=== PATIENT | female | born 1955 | race Caucasian/White ===

== ENCOUNTER 2020-07-15 09:10 | Inpatient (IN) ==
[2020-07-15] MEDS ORDERED: Ciprofloxacin 400mg IVPREMIX 400 MG/200 ML BAG IVPB ONE (09:28)
[2020-07-15 10:10] LABS: ABS Basophils 0.1 10^3/ul (0-0.2); ABS Lymphocytes 0.4 10^3/ul (1.0-4.8); ABS Monocytes 0.3 10^3/ul (0-0.8); ABS Neutrophils 9.7 10^3/ul (1.5-7.7); Eosinophil % 0.3 %; Hematocrit 30 % (35-47); Hemoglobin 9.2 g/dL (12.0-16.0); Lymphocyte % 3.7 %; Mean Corpuscular HGB Conc 31 g/dL (31-36); Mean Corpuscular Hemoglobin 23 pg (27-31); Mean Corpuscular Volume 74 fL (80-97); Mean Platelet Volume 6.6 fL (7.4-10.4); Platelet Count 506 10^3/uL (150-450); Red Blood Count 3.97 10^6 /uL (3.70-4.87); Red Cell Distribution Width 27 % (10-15); White Blood Count 10.5 10^3/uL (3.5-10.8)
[2020-07-15 10:28] LABS: ALT 6 U/L (7-52); AST 11 U/L (13-39); Albumin 2.7 g/dL (3.2-5.2); Albumin/Globulin Ratio 0.6 (1-3); Alkaline Phosphatase 84 U/L (34-104); Anion Gap 6 mmol/L (2-11); BUN/Creatinine Ratio 27.4 (8-20); Blood Urea Nitrogen 29 mg/dL (6-24); C Reactive Protein 131.84 mg/L (<8.01); CO2 Carbon Dioxide 24 mmol/L (22-32); Chloride 105 mmol/L (101-111); EGFR African American 62.6 (>60); EGFR Non-African American 51.7 (>60); Globulin 4.7 g/dL (2-4); Glucose 103 mg/dL (70-100); Lipase < 10 U/L (11.0-82.0); Magnesium 1.9 mg/dL (1.9-2.7); Potassium 4.2 mmol/L (3.5-5.0); Sodium 135 mmol/L (135-145); Total Protein 7.4 g/dL (6.4-8.9)
[2020-07-15 11:13] LABS: Microcytosis 1+
[2020-07-15 11:50] LABS: Urine Appearance Cloudy; Urine Bilirubin Negative (Negative); Urine Blood 2+ (Negative); Urine Color Yellow; Urine Glucose Negative (Negative); Urine Ketones Negative (Negative); Urine Nitrite Negative (Negative); Urine Protein 1+(30 mg/dL) (Negative); Urine Specific Gravity 1.035 (1.010-1.030); Urine Urobilinogen Negative (Negative)
[2020-07-15 11:57] LABS: Urine Bacteria 1+ (Absent); Urine Red Blood Cell 3+(>10/hpf) (Absent); Urine Squamous Epithelial Cell Present (Absent); Urine White Blood Cell 2+(11-20/hpf) (Absent)
[2020-07-15] MEDS ORDERED: Cefepime 2 GM in Dextrose 2 GM/50 ML BAG IV SCH (12:00)
[2020-07-15 12:31] LABS: TSH Ultra Thyroid Stim Horm 3.03 mcIU/mL (0.34-5.60)
[2020-07-15] MEDS ORDERED: Bupivacaine 0.25% SDV 30 ML ONE (13:03)
[2020-07-15] MEDS ORDERED: Rocuronium 50 mg VIAL 10 mg/ml 5 ml VIAL (50 mg) ONE ×2 (13:10→14:44)
[2020-07-15] MEDS ORDERED: Midazolam 2 mg/2 ml VIAL 1 mg/ml 2 ml VIAL (2 mg) ONE (13:11)
[2020-07-15] MEDS ORDERED: fentaNYL 250 mcg/5 ml 50 MCG/ML 5 ml VIAL (250 MCG) ONE (13:11)
[2020-07-15] MEDS ORDERED: Propofol 10 MG/ML 20 ML BTL ONE (13:16)
[2020-07-15] MEDS ORDERED: Lidocaine 2% PF 5 ML VIAL ONE (13:16)
[2020-07-15] MEDS ORDERED: Ondansetron 4 mg VIAL 2 MG/ML 2 ml VIAL ONE (14:49)
[2020-07-15] MEDS ORDERED: Dexamethasone IV 4 MG/ML VIAL 1 ml VIAL ONE (14:49)
[2020-07-15] MEDS ORDERED: HYDROmorphone 1 MG/1 ML SYRINGE ONE (15:21)
[2020-07-15] MEDS ORDERED: HYDROmorphone 1 MG/1 ML SYRINGE IV PRN (16:14)
[2020-07-15] MEDS ORDERED: Naloxone 0.4 mg VIAL 0.4 mg/ml 1 ml VIAL IV PRN (16:14)
[2020-07-15] MEDS ORDERED: diPHENhydraMINE IV 50 MG/ML 1 ml VIAL (BENADRYL) IV PRN (16:14)
[2020-07-15] MEDS ORDERED: Prochlorperazine 5 mg/ml 2 ml VIAL (10 mg) IV PRN (16:14)
[2020-07-15] MEDS ORDERED: Phenylephrine 40 mcg/mL 10mL (400mcg) SYRINGE ONE (16:44)
[2020-07-15] MEDS: Pantoprazole VIAL 40 MG VIAL IV SCH ×2 (21:03→23:04)
[2020-07-15] MEDS: metroNIDAZOLE IV 500 MG/100ML 500 MG/100 ML BAG IVPB SCH ×2 (21:04→21:06)
[2020-07-15] MEDS: Mometasone/Formoter 100/5 MDI INH SCH (21:04)
[2020-07-15] MEDS: Metoprolol Tartrate 5 mg VIAL 5 ml VIAL (1 mg/ml) IV SCH (21:22)
[2020-07-15] MEDS: ceFAZolin 2 GM PREMIX 2 GM/50 ML BAG IVPB SCH (23:04)
[2020-07-16] MEDS: Metoprolol Tartrate 5 mg VIAL 5 ml VIAL (1 mg/ml) IV SCH ×4 (03:49→20:30)
[2020-07-16 05:08] LABS: ABS Basophils 0.1 10^3/ul (0-0.2); ABS Lymphocytes 0.8 10^3/ul (1.0-4.8); ABS Monocytes 0.4 10^3/ul (0-0.8); ABS Neutrophils 10.8 10^3/ul (1.5-7.7); Eosinophil % 0.1 %; Hematocrit 25 % (35-47); Hemoglobin 7.7 g/dL (12.0-16.0); Lymphocyte % 6.5 %; Mean Corpuscular HGB Conc 31 g/dL (31-36); Mean Corpuscular Hemoglobin 23 pg (27-31); Mean Corpuscular Volume 75 fL (80-97); Mean Platelet Volume 6.8 fL (7.4-10.4); Platelet Count 467 10^3/uL (150-450); Red Blood Count 3.33 10^6 /uL (3.70-4.87); Red Cell Distribution Width 26 % (10-15)
[2020-07-16] MEDS: ceFAZolin 2 GM PREMIX 2 GM/50 ML BAG IVPB SCH ×2 (05:10→17:27)
[2020-07-16 05:27] LABS: Albumin 2.3 g/dL (3.2-5.2); Magnesium 1.9 mg/dL (1.9-2.7); Potassium 4.7 mmol/L (3.5-5.0); Total Bilirubin 0.3 mg/dL (0.2-1.0)
[2020-07-16 05:33] LABS: Albumin/Globulin Ratio 0.5 (1-3); BUN/Creatinine Ratio 23.8 (8-20); EGFR African American 49.4 (>60); EGFR Non-African American 40.9 (>60); Globulin 4.2 g/dL (2-4); Total Protein 6.5 g/dL (6.4-8.9)
[2020-07-16] MEDS: HYDROmorphone 0.5 MG/0.5 ML SYRINGE IV PRN ×4 (06:32→22:34)
[2020-07-16] MEDS: Mometasone/Formoter 100/5 MDI INH SCH ×2 (10:36→20:32)
[2020-07-16] MEDS: Pantoprazole VIAL 40 MG VIAL IV SCH ×2 (13:54→23:38)
[2020-07-16] MEDS: TPN 24 HR with D10W 1000 ml BAG 1,000 ML, Amino Acid Infusion 10% 850 ML, Sterile Water... IV SCH (18:27)
[2020-07-16 20:04] LABS: Hematocrit 24 % (35-47); Hemoglobin 7.9 g/dL (12.0-16.0)
[2020-07-16] MEDS: Heparin 5000 UNITS/ML 1 mL VIAL SUBCUT SCH (22:34)
[2020-07-16] MEDS: Ondansetron 4 mg VIAL 2 MG/ML 2 ml VIAL IV PRN (22:47)
[2020-07-16] MEDS ORDERED: Furosemide 40 mg/4 ml IV VIAL IV ONE (23:24)
[2020-07-16] MEDS: Prochlorperazine 5 mg/ml 2 ml VIAL (10 mg) IV PRN (23:39)
[2020-07-17] MEDS: ceFAZolin 2 GM PREMIX 2 GM/50 ML BAG IVPB SCH ×3 (02:44→17:27)
[2020-07-17] MEDS: Metoprolol Tartrate 5 mg VIAL 5 ml VIAL (1 mg/ml) IV SCH ×4 (03:44→21:55)
[2020-07-17] MEDS: HYDROmorphone 0.5 MG/0.5 ML SYRINGE IV PRN ×3 (04:04→16:16)
[2020-07-17 05:19] LABS: ABS Eosinophils 0.2 10^3/ul (0-0.6); ABS Lymphocytes 0.7 10^3/ul (1.0-4.8); ABS Monocytes 0.4 10^3/ul (0-0.8); ABS Neutrophils 9.3 10^3/ul (1.5-7.7); Eosinophil % 1.5 %; Hematocrit 28 % (35-47); Lymphocyte % 6.6 %; Mean Corpuscular HGB Conc 32 g/dL (31-36); Mean Corpuscular Hemoglobin 24 pg (27-31); Mean Corpuscular Volume 75 fL (80-97); Mean Platelet Volume 6.8 fL (7.4-10.4); Nucleated Red Blood Cells % 0.1; Platelet Count 374 10^3/uL (150-450); Red Blood Count 3.78 10^6 /uL (3.70-4.87); Red Cell Distribution Width 24 % (10-15); White Blood Count 10.5 10^3/uL (3.5-10.8)
[2020-07-17] MEDS: Heparin 5000 UNITS/ML 1 mL VIAL SUBCUT SCH ×3 (05:20→21:49)
[2020-07-17 05:29] LABS: Albumin 2.2 g/dL (3.2-5.2); Albumin/Globulin Ratio 0.5 (1-3); EGFR African American 48.6 (>60); EGFR Non-African American 40.1 (>60); Globulin 4.4 g/dL (2-4); Potassium 3.9 mmol/L (3.5-5.0); Total Bilirubin 0.3 mg/dL (0.2-1.0); Total Protein 6.6 g/dL (6.4-8.9)
[2020-07-17] MEDS: Mometasone/Formoter 100/5 MDI INH SCH ×2 (08:39→21:04)
[2020-07-17] MEDS: Pantoprazole VIAL 40 MG VIAL IV SCH (12:05)
[2020-07-17] MEDS: Iron Sucrose 200 MG in NS 0.9% 100 ml BAG 100 ML IVPB SCH (12:08)
[2020-07-17] MEDS: Ondansetron 4 mg VIAL 2 MG/ML 2 ml VIAL IV PRN (15:55)
[2020-07-17] MEDS: TPN 24 HR with D10W 1000 ml BAG 1,000 ML, Amino Acid Infusion 10% 850 ML, Sterile Water... IV SCH (17:16)
[2020-07-18] MEDS: Pantoprazole VIAL 40 MG VIAL IV SCH ×2 (00:06→13:27)
[2020-07-18] MEDS: ceFAZolin 2 GM PREMIX 2 GM/50 ML BAG IVPB SCH ×3 (02:32→17:06)
[2020-07-18] MEDS: Metoprolol Tartrate 5 mg VIAL 5 ml VIAL (1 mg/ml) IV SCH ×4 (03:37→21:39)
[2020-07-18] MEDS: Heparin 5000 UNITS/ML 1 mL VIAL SUBCUT SCH ×3 (05:35→21:39)
[2020-07-18 08:13] LABS: ABS Basophils 0.1 10^3/ul (0-0.2); ABS Eosinophils 0.3 10^3/ul (0-0.6); ABS Lymphocytes 0.9 10^3/ul (1.0-4.8); ABS Monocytes 0.3 10^3/ul (0-0.8); ABS Neutrophils 6.8 10^3/ul (1.5-7.7); Eosinophil % 3.2 %; Hematocrit 27 % (35-47); Hemoglobin 8.7 g/dL (12.0-16.0); Lymphocyte % 11.1 %; Mean Corpuscular HGB Conc 33 g/dL (31-36); Mean Corpuscular Hemoglobin 24 pg (27-31); Mean Corpuscular Volume 75 fL (80-97); Platelet Count 306 10^3/uL (150-450); Red Cell Distribution Width 24 % (10-15); White Blood Count 8.4 10^3/uL (3.5-10.8)
[2020-07-18 08:20] LABS: BUN/Creatinine Ratio 24.4 (8-20); Calcium 8.4 mg/dL (8.6-10.3); EGFR African American 75.6 (>60); EGFR Non-African American 62.5 (>60); Magnesium 1.9 mg/dL (1.9-2.7); Potassium 4.1 mmol/L (3.5-5.0)
[2020-07-18] MEDS: HYDROmorphone 0.5 MG/0.5 ML SYRINGE IV PRN ×4 (09:23→21:39)
[2020-07-18] MEDS: Mometasone/Formoter 100/5 MDI INH SCH ×2 (09:25→20:38)
[2020-07-18] MEDS: Iron Sucrose 200 MG in NS 0.9% 100 ml BAG 100 ML IVPB SCH (10:45)
[2020-07-18 14:30] LABS: ALT < 3 U/L (7-52); AST 14 U/L (13-39); Albumin 2.3 g/dL (3.2-5.2); Albumin/Globulin Ratio 0.5 (1-3); Alkaline Phosphatase 63 U/L (34-104); Anion Gap 4 mmol/L (2-11); BUN/Creatinine Ratio 25.3 (8-20); Blood Urea Nitrogen 21 mg/dL (6-24); CO2 Carbon Dioxide 24 mmol/L (22-32); Calcium 8.3 mg/dL (8.6-10.3); Chloride 106 mmol/L (101-111); Cholesterol 48 mg/dL; EGFR Non-African American 68.6 (>60); Globulin 4.2 g/dL (2-4); Glucose 106 mg/dL (70-100); Phosphorus 1.8 mg/dL (2.5-5.0); Potassium 4.2 mmol/L (3.5-5.0); Sodium 134 mmol/L (135-145); Total Protein 6.5 g/dL (6.4-8.9); Triglycerides 131 mg/dL
[2020-07-18 14:51] LABS: Prealbumin 7 mg/dL (18-38)
[2020-07-18] MEDS ORDERED: Sodium Phosphate IV 15 MMOLE in NS 0.9% 250 ml 250 ML IVPB ONE (16:00)
[2020-07-18] MEDS ORDERED: TPN CENTRAL STANDARD BASE A CENTR SCH (17:00)
[2020-07-19] MEDS: Pantoprazole VIAL 40 MG VIAL IV SCH ×2 (00:25→12:26)
[2020-07-19] MEDS: HYDROmorphone 0.5 MG/0.5 ML SYRINGE IV PRN (00:27)
[2020-07-19] MEDS: ceFAZolin 2 GM PREMIX 2 GM/50 ML BAG IVPB SCH ×3 (02:31→17:56)
[2020-07-19] MEDS: Metoprolol Tartrate 5 mg VIAL 5 ml VIAL (1 mg/ml) IV SCH ×4 (03:20→21:19)
[2020-07-19] MEDS: Ondansetron 4 mg VIAL 2 MG/ML 2 ml VIAL IV PRN ×2 (05:36→19:07)
[2020-07-19] MEDS: Heparin 5000 UNITS/ML 1 mL VIAL SUBCUT SCH ×3 (05:36→21:19)
[2020-07-19 06:08] LABS: ABS Basophils 0.1 10^3/ul (0-0.2); ABS Eosinophils 0.2 10^3/ul (0-0.6); ABS Lymphocytes 0.9 10^3/ul (1.0-4.8); ABS Monocytes 0.4 10^3/ul (0-0.8); Eosinophil % 3.4 %; Hematocrit 27 % (35-47); Hemoglobin 8.5 g/dL (12.0-16.0); Lymphocyte % 14.3 %; Mean Corpuscular HGB Conc 31 g/dL (31-36); Mean Corpuscular Hemoglobin 23 pg (27-31); Mean Corpuscular Volume 74 fL (80-97); Mean Platelet Volume 6.8 fL (7.4-10.4); Nucleated Red Blood Cells % 0.1; Platelet Count 288 10^3/uL (150-450); Red Blood Count 3.67 10^6 /uL (3.70-4.87); Red Cell Distribution Width 24 % (10-15); White Blood Count 6.6 10^3/uL (3.5-10.8)
[2020-07-19 06:29] LABS: ALT < 3 U/L (7-52); AST 10 U/L (13-39); Albumin 2.3 g/dL (3.2-5.2); Albumin/Globulin Ratio 0.5 (1-3); Alkaline Phosphatase 66 U/L (34-104); Anion Gap 6 mmol/L (2-11); BUN/Creatinine Ratio 22.9 (8-20); Blood Urea Nitrogen 19 mg/dL (6-24); CO2 Carbon Dioxide 22 mmol/L (22-32); Calcium 8.2 mg/dL (8.6-10.3); Chloride 107 mmol/L (101-111); Cholesterol 52 mg/dL; EGFR Non-African American 68.6 (>60); Globulin 4.6 g/dL (2-4); Glucose 103 mg/dL (70-100); Phosphorus 2.9 mg/dL (2.5-5.0); Potassium 4.2 mmol/L (3.5-5.0); Sodium 135 mmol/L (135-145); Total Protein 6.9 g/dL (6.4-8.9); Triglycerides 123 mg/dL
[2020-07-19] MEDS: HYDROmorphone 1 MG/1 ML SYRINGE IV PRN ×4 (06:43→21:18)
[2020-07-19] MEDS: Iron Sucrose 200 MG in NS 0.9% 100 ml BAG 100 ML IVPB SCH (09:45)
[2020-07-19] MEDS: Mometasone/Formoter 100/5 MDI INH SCH ×2 (09:46→19:24)
[2020-07-19 10:27] LABS: Prealbumin 8 mg/dL (18-38)
[2020-07-19] MEDS: TPN 24 HR with Sodium Chloride CONC. 4 MEQ/ML 100 MEQ, Potassium Chloride TPN 50 MEQ, P... CENT\\PICC SCH (17:56)
[2020-07-20] MEDS: Pantoprazole VIAL 40 MG VIAL IV SCH ×2 (00:15→11:56)
[2020-07-20] MEDS: Prochlorperazine 5 mg/ml 2 ml VIAL (10 mg) IV PRN ×2 (01:37→14:03)
[2020-07-20] MEDS: ceFAZolin 2 GM PREMIX 2 GM/50 ML BAG IVPB SCH ×3 (01:37→17:36)
[2020-07-20] MEDS: HYDROmorphone 0.5 MG/0.5 ML SYRINGE IV PRN (03:04)
[2020-07-20] MEDS: Ondansetron 4 mg VIAL 2 MG/ML 2 ml VIAL IV PRN ×2 (03:04→09:55)
[2020-07-20] MEDS: Metoprolol Tartrate 5 mg VIAL 5 ml VIAL (1 mg/ml) IV SCH ×2 (03:04→09:57)
[2020-07-20] MEDS: Heparin 5000 UNITS/ML 1 mL VIAL SUBCUT SCH ×3 (05:56→20:09)
[2020-07-20 06:52] LABS: ALT < 3 U/L (7-52); AST 9 U/L (13-39); Albumin 2.3 g/dL (3.2-5.2); Albumin/Globulin Ratio 0.5 (1-3); Alkaline Phosphatase 84 U/L (34-104); Anion Gap 5 mmol/L (2-11); BUN/Creatinine Ratio 21.8 (8-20); Blood Urea Nitrogen 17 mg/dL (6-24); CO2 Carbon Dioxide 23 mmol/L (22-32); Calcium 8.3 mg/dL (8.6-10.3); Chloride 106 mmol/L (101-111); Cholesterol 57 mg/dL; EGFR African American 89.1 (>60); EGFR Non-African American 73.7 (>60); Globulin 4.7 g/dL (2-4); Glucose 101 mg/dL (70-100); Magnesium 1.9 mg/dL (1.9-2.7); Phosphorus 2.1 mg/dL (2.5-5.0); Potassium 4.3 mmol/L (3.5-5.0); Sodium 134 mmol/L (135-145); Triglycerides 124 mg/dL
[2020-07-20 07:02] LABS: Prealbumin 10 mg/dL (18-38)
[2020-07-20] MEDS: Iron Sucrose 200 MG in NS 0.9% 100 ml BAG 100 ML IVPB SCH (09:59)
[2020-07-20] MEDS: Mometasone/Formoter 100/5 MDI INH SCH ×2 (10:05→20:24)
[2020-07-20] MEDS ORDERED: Sodium Phosphate IV 10 MMOLE in NS 0.9% 250 ml 250 ML IVPB ONE (10:30)
[2020-07-20] MEDS: HYDROmorphone 1 MG/1 ML SYRINGE IV PRN ×2 (14:55→20:09)
[2020-07-20] MEDS: TPN 24 HR with Sodium Chloride CONC. 4 MEQ/ML 100 MEQ, Potassium Chloride TPN 50 MEQ, P... CENT\\PICC SCH (17:30)
[2020-07-21] MEDS: Pantoprazole VIAL 40 MG VIAL IV SCH ×2 (00:10→11:56)
[2020-07-21] MEDS: Prochlorperazine 5 mg/ml 2 ml VIAL (10 mg) IV PRN (00:47)
[2020-07-21] MEDS: ceFAZolin 2 GM PREMIX 2 GM/50 ML BAG IVPB SCH ×3 (01:16→17:55)
[2020-07-21] MEDS: HYDROmorphone 1 MG/1 ML SYRINGE IV PRN (01:53)
[2020-07-21] MEDS: Heparin 5000 UNITS/ML 1 mL VIAL SUBCUT SCH ×3 (05:09→20:01)
[2020-07-21 05:42] LABS: BUN/Creatinine Ratio 22.9 (8-20); Calcium 8.1 mg/dL (8.6-10.3); EGFR Non-African American 83.5 (>60); Potassium 4.3 mmol/L (3.5-5.0)
[2020-07-21] MEDS: Mometasone/Formoter 100/5 MDI INH SCH ×2 (07:54→20:01)
[2020-07-21] MEDS: Iron Sucrose 200 MG in NS 0.9% 100 ml BAG 100 ML IVPB SCH (09:32)
[2020-07-21] MEDS: Ondansetron 4 mg VIAL 2 MG/ML 2 ml VIAL IV PRN (09:47)
[2020-07-21 11:59] LABS: Magnesium 1.8 mg/dL (1.9-2.7); Phosphorus 2.2 mg/dL (2.5-5.0)
[2020-07-21] MEDS: TPN 24 HR with Sodium Chloride CONC. 4 MEQ/ML 100 MEQ, Potassium Chloride TPN 50 MEQ, P... CENT\\PICC SCH (17:11)
[2020-07-21] MEDS ORDERED: Sodium Phosphate IV 20 MMOLE in NS 0.9% 250 ml 250 ML IVPB ONE ×2 (18:10→22:00)
[2020-07-22] MEDS: ceFAZolin 2 GM PREMIX 2 GM/50 ML BAG IVPB SCH ×3 (01:27→17:44)
[2020-07-22] MEDS: Pantoprazole VIAL 40 MG VIAL IV SCH ×2 (01:27→13:18)
[2020-07-22] MEDS: Heparin 5000 UNITS/ML 1 mL VIAL SUBCUT SCH ×3 (04:58→22:03)
[2020-07-22 05:45] LABS: ABS Basophils 0.1 10^3/ul (0-0.2); ABS Eosinophils 0.3 10^3/ul (0-0.6); ABS Lymphocytes 1.1 10^3/ul (1.0-4.8); ABS Monocytes 0.5 10^3/ul (0-0.8); ABS Neutrophils 9.7 10^3/ul (1.5-7.7); Anion Gap 4 mmol/L (2-11); BUN/Creatinine Ratio 23.9 (8-20); Blood Urea Nitrogen 17 mg/dL (6-24); CO2 Carbon Dioxide 19 mmol/L (22-32); Calcium 8.3 mg/dL (8.6-10.3); Chloride 106 mmol/L (101-111); EGFR African American 99.4 (>60); EGFR Non-African American 82.1 (>60); Eosinophil % 2.9 %; Glucose 135 mg/dL (70-100); Hematocrit 30 % (35-47); Hemoglobin 9.5 g/dL (12.0-16.0); Lymphocyte % 9.2 %; Magnesium 1.8 mg/dL (1.9-2.7); Mean Corpuscular HGB Conc 31 g/dL (31-36); Mean Corpuscular Hemoglobin 24 pg (27-31); Mean Corpuscular Volume 76 fL (80-97); Mean Platelet Volume 7.6 fL (7.4-10.4); Phosphorus 3.3 mg/dL (2.5-5.0); Platelet Count 287 10^3/uL (150-450); Potassium 4.1 mmol/L (3.5-5.0); Red Blood Count 3.99 10^6 /uL (3.70-4.87); Red Cell Distribution Width 25 % (10-15); Sodium 129 mmol/L (135-145); White Blood Count 11.8 10^3/uL (3.5-10.8)
[2020-07-22] MEDS: Prochlorperazine 5 mg/ml 2 ml VIAL (10 mg) IV PRN (05:56)
[2020-07-22] MEDS: Mometasone/Formoter 100/5 MDI INH SCH ×2 (07:25→19:52)
[2020-07-22] MEDS ORDERED: Al Hydrox/Mg Hydrox/Simet LIQ 30 ML UDC PO ONE (08:05)
[2020-07-22] MEDS ORDERED: Senna TAB 8.6 mg TAB PO PRN (09:44)
[2020-07-22] MEDS ORDERED: oxyCODONE/Acetamin 5/325 mg TAB ONE (09:51)
[2020-07-22] MEDS: oxyCODONE/Acetamin 5/325 mg TAB PO PRN ×2 (09:53→15:49)
[2020-07-22 09:59] LABS: C Reactive Protein 41.12 mg/L (<8.01)
[2020-07-22 10:02] LABS: Troponin I 1.62 ng/mL (<0.03)
[2020-07-22] MEDS ORDERED: Iodixanol (CONTRAST) 320 MG/ML 100 ML SDV IV ONE (10:32)
[2020-07-22] MEDS ORDERED: Magnesium Sulfate 2 gm BAG 2 GM/50 ML BAG IVPB ONE (10:36)
[2020-07-22 10:38] LABS: Creatine Kinase < 10 U/L (10-223)
[2020-07-22 10:38] LABS: Creatine Kinase 32 U/L (10-223)
[2020-07-22 10:41] LABS: CKMB ng/mL 1.2 ng/mL (0.6-6.3)
[2020-07-22 10:47] LABS: CKMB ng/mL 1.2 ng/mL (0.6-6.3)
[2020-07-22 11:03] LABS: Troponin I 1.37 ng/mL (<0.03)
[2020-07-22] MEDS: POTASSIUM CHLORIDE TPN CENT\\PICC SCH (17:43)
[2020-07-22] MEDS: [UNRECOGNIZED DRUG - OTHER] CENT\\PICC SCH (17:43)
[2020-07-22] MEDS: TPN CENT\\PICC SCH (17:43)
[2020-07-22] MEDS: SODIUM CHLORIDE CENT\\PICC SCH (17:43)
[2020-07-23] MEDS: Pantoprazole VIAL 40 MG VIAL IV SCH ×2 (02:15→12:02)
[2020-07-23] MEDS: ceFAZolin 2 GM PREMIX 2 GM/50 ML BAG IVPB SCH ×2 (02:15→09:49)
[2020-07-23] MEDS: HYDROmorphone 0.5 MG/0.5 ML SYRINGE IV PRN (02:51)
[2020-07-23 07:09] LABS: Hematocrit 32 % (35-47); Hemoglobin 10.2 g/dL (12.0-16.0); Mean Corpuscular HGB Conc 32 g/dL (31-36); Mean Corpuscular Hemoglobin 24 pg (27-31); Mean Corpuscular Volume 77 fL (80-97); Mean Platelet Volume 7.9 fL (7.4-10.4); Platelet Count 372 10^3/uL (150-450); Red Blood Count 4.19 10^6 /uL (3.70-4.87); Red Cell Distribution Width 25 % (10-15); White Blood Count 14.3 10^3/uL (3.5-10.8)
[2020-07-23 07:25] LABS: BUN/Creatinine Ratio 27.9 (8-20); Calcium 8.3 mg/dL (8.6-10.3); EGFR African American 104.4 (>60); EGFR Non-African American 86.3 (>60); Magnesium 2.3 mg/dL (1.9-2.7); Potassium 4.6 mmol/L (3.5-5.0)
[2020-07-23 07:35] LABS: ABS Basophils 0.1 10^3/ul (0-0.2); ABS Eosinophils 0.3 10^3/ul (0-0.6); ABS Lymphocytes 1.1 10^3/ul (1.0-4.8); ABS Monocytes 0.6 10^3/ul (0-0.8); ABS Neutrophils 12.1 10^3/ul (1.5-7.7); Eosinophil % 2.4 %
[2020-07-23] MEDS: Mometasone/Formoter 100/5 MDI INH SCH ×2 (07:48→19:07)
[2020-07-23] MEDS: oxyCODONE/Acetamin 5/325 mg TAB PO PRN (09:48)
[2020-07-23] MEDS: Heparin 5000 UNITS/ML 1 mL VIAL SUBCUT SCH ×2 (09:50→17:43)
[2020-07-23] MEDS: Scopolamine PATCH Remove NOTE PATCH OFF SCH (09:52)
[2020-07-23] MEDS: HYDROmorphone 1 MG/1 ML SYRINGE IV PRN ×3 (10:58→22:26)
[2020-07-23] MEDS ORDERED: Furosemide 40 mg/4 ml IV VIAL IV SLOW PU ONE (11:23)
[2020-07-23] MEDS: SODIUM CHLORIDE CENT\\PICC SCH (16:38)
[2020-07-23] MEDS: POTASSIUM CHLORIDE TPN CENT\\PICC SCH (16:38)
[2020-07-23] MEDS: TPN CENT\\PICC SCH (16:38)
[2020-07-23] MEDS: [UNRECOGNIZED DRUG - OTHER] CENT\\PICC SCH (16:38)
[2020-07-24] MEDS: Heparin 5000 UNITS/ML 1 mL VIAL SUBCUT SCH ×3 (03:34→18:04)
[2020-07-24] MEDS: Pantoprazole VIAL 40 MG VIAL IV SCH ×3 (03:35→23:52)
[2020-07-24] MEDS: Ondansetron 4 mg VIAL 2 MG/ML 2 ml VIAL IV PRN ×2 (05:35→16:13)
[2020-07-24 06:45] LABS: Hematocrit 31 % (35-47); Hemoglobin 9.7 g/dL (12.0-16.0); Mean Corpuscular HGB Conc 32 g/dL (31-36); Mean Corpuscular Hemoglobin 24 pg (27-31); Mean Corpuscular Volume 76 fL (80-97); Mean Platelet Volume 7.5 fL (7.4-10.4); Platelet Count 364 10^3/uL (150-450); Red Blood Count 4.05 10^6 /uL (3.70-4.87); Red Cell Distribution Width 25 % (10-15); White Blood Count 14.8 10^3/uL (3.5-10.8)
[2020-07-24 06:55] LABS: BUN/Creatinine Ratio 38.4 (8-20); Calcium 8.7 mg/dL (8.6-10.3); EGFR African American 96.2 (>60); EGFR Non-African American 79.5 (>60); Potassium 4.9 mmol/L (3.5-5.0)
[2020-07-24 07:19] LABS: ABS Basophils 0.1 10^3/ul (0-0.2); ABS Eosinophils 0.3 10^3/ul (0-0.6); ABS Lymphocytes 1.4 10^3/ul (1.0-4.8); ABS Monocytes 0.6 10^3/ul (0-0.8); ABS Neutrophils 12.5 10^3/ul (1.5-7.7); Lymphocyte % 9.3 %
[2020-07-24] MEDS: Mometasone/Formoter 100/5 MDI INH SCH ×2 (08:05→19:08)
[2020-07-24] MEDS: Prochlorperazine 5 mg/ml 2 ml VIAL (10 mg) IV PRN (10:23)
[2020-07-24] MEDS: HYDROmorphone 1 MG/1 ML SYRINGE IV PRN ×2 (10:36→21:42)
[2020-07-24] MEDS ORDERED: TPN CENT\\PICC SCH (17:00)
[2020-07-24] MEDS ORDERED: [UNRECOGNIZED DRUG - OTHER] CENT\\PICC SCH (17:00)
[2020-07-24] MEDS ORDERED: POTASSIUM CHLORIDE TPN CENT\\PICC SCH (17:00)
[2020-07-24] MEDS ORDERED: SODIUM CHLORIDE CENT\\PICC SCH (17:00)
[2020-07-24] MEDS: HYDROmorphone 0.5 MG/0.5 ML SYRINGE IV PRN (18:44)
[2020-07-25] MEDS: Heparin 5000 UNITS/ML 1 mL VIAL SUBCUT SCH ×3 (01:25→17:24)
[2020-07-25] MEDS: HYDROmorphone 0.5 MG/0.5 ML SYRINGE IV PRN (01:26)
[2020-07-25] MEDS: Ondansetron 4 mg VIAL 2 MG/ML 2 ml VIAL IV PRN ×2 (01:33→08:55)
[2020-07-25 05:26] LABS: ABS Eosinophils 0.3 10^3/ul (0-0.6); ABS Lymphocytes 1.1 10^3/ul (1.0-4.8); ABS Monocytes 0.8 10^3/ul (0-0.8); Eosinophil % 1.8 %; Hematocrit 30 % (35-47); Hemoglobin 9.2 g/dL (12.0-16.0); Lymphocyte % 6.5 %; Mean Corpuscular HGB Conc 31 g/dL (31-36); Mean Corpuscular Hemoglobin 24 pg (27-31); Mean Corpuscular Volume 77 fL (80-97); Mean Platelet Volume 7.5 fL (7.4-10.4); Platelet Count 411 10^3/uL (150-450); Red Blood Count 3.84 10^6 /uL (3.70-4.87); Red Cell Distribution Width 25 % (10-15); White Blood Count 17.3 10^3/uL (3.5-10.8)
[2020-07-25 05:35] LABS: BUN/Creatinine Ratio 41.6 (8-20); Calcium 8.8 mg/dL (8.6-10.3); EGFR African American 90.5 (>60); EGFR Non-African American 74.8 (>60); Magnesium 1.8 mg/dL (1.9-2.7); Phosphorus 2.8 mg/dL (2.5-5.0)
[2020-07-25] MEDS: Mometasone/Formoter 100/5 MDI INH SCH ×3 (08:11→21:10)
[2020-07-25] MEDS ORDERED: Magnesium Sulfate 2 gm BAG 2 GM/50 ML BAG IVPB ONE (08:41)
[2020-07-25] MEDS: Mupirocin 2% OINT TUBE TOPICAL SCH ×2 (13:25→21:36)
[2020-07-25] MEDS: Pantoprazole VIAL 40 MG VIAL IV SCH (13:30)
[2020-07-25] MEDS: TPN CENTRAL STANDARD BASE B CENT\\PICC SCH (16:47)
[2020-07-26] MEDS: Pantoprazole VIAL 40 MG VIAL IV SCH ×2 (01:02→13:42)
[2020-07-26] MEDS: Heparin 5000 UNITS/ML 1 mL VIAL SUBCUT SCH ×3 (01:04→16:19)
[2020-07-26] MEDS: Ondansetron 4 mg VIAL 2 MG/ML 2 ml VIAL IV PRN (03:50)
[2020-07-26 05:54] LABS: ABS Basophils 0.1 10^3/ul (0-0.2); ABS Eosinophils 0.3 10^3/ul (0-0.6); ABS Lymphocytes 1.2 10^3/ul (1.0-4.8); ABS Monocytes 0.6 10^3/ul (0-0.8); ABS Neutrophils 11.8 10^3/ul (1.5-7.7); Eosinophil % 1.9 %; Hematocrit 28 % (35-47); Hemoglobin 8.7 g/dL (12.0-16.0); Lymphocyte % 8.7 %; Mean Corpuscular HGB Conc 32 g/dL (31-36); Mean Corpuscular Hemoglobin 25 pg (27-31); Mean Corpuscular Volume 78 fL (80-97); Mean Platelet Volume 7.6 fL (7.4-10.4); Platelet Count 448 10^3/uL (150-450); Red Blood Count 3.54 10^6 /uL (3.70-4.87); Red Cell Distribution Width 25 % (10-15)
[2020-07-26 06:16] LABS: ALT 17 U/L (7-52); AST 33 U/L (13-39); Albumin 2.4 g/dL (3.2-5.2); Albumin/Globulin Ratio 0.5 (1-3); Alkaline Phosphatase 212 U/L (34-104); Anion Gap 3 mmol/L (2-11); BUN/Creatinine Ratio 47.7 (8-20); Blood Urea Nitrogen 31 mg/dL (6-24); CO2 Carbon Dioxide 19 mmol/L (22-32); Calcium 8.6 mg/dL (8.6-10.3); Chloride 108 mmol/L (101-111); Cholesterol 51 mg/dL; EGFR Non-African American 90.9 (>60); Globulin 5.1 g/dL (2-4); Glucose 113 mg/dL (70-100); Magnesium 1.9 mg/dL (1.9-2.7); Phosphorus 3.1 mg/dL (2.5-5.0); Potassium 4.4 mmol/L (3.5-5.0); Sodium 130 mmol/L (135-145); Total Protein 7.5 g/dL (6.4-8.9); Triglycerides 99 mg/dL
[2020-07-26 06:41] LABS: Prealbumin 16 mg/dL (18-38)
[2020-07-26] MEDS: Mometasone/Formoter 100/5 MDI INH SCH ×2 (07:35→19:30)
[2020-07-26] MEDS: Mupirocin 2% OINT TUBE TOPICAL SCH ×2 (08:24→21:16)
[2020-07-26] MEDS: Prochlorperazine 5 mg/ml 2 ml VIAL (10 mg) IV PRN (08:27)
[2020-07-26] MEDS ORDERED: Furosemide 40 mg/4 ml IV VIAL IV ONE (09:08)
[2020-07-26] MEDS ORDERED: Iodixanol (CONTRAST) 320 MG/ML 100 ML SDV IV ONE (11:10)
[2020-07-26 13:01] LABS: Troponin I 0.26 ng/mL (<0.03)
[2020-07-26] MEDS: Scopolamine PATCH Remove NOTE PATCH OFF SCH (13:31)
[2020-07-26] MEDS: oxyCODONE/Acetamin 5/325 mg TAB PO PRN (13:42)
[2020-07-26 13:57] LABS: Troponin I 0.24 ng/mL (<0.03)
[2020-07-26] MEDS: TPN CENTRAL STANDARD BASE B CENT\\PICC SCH (16:18)
[2020-07-27] MEDS: Pantoprazole VIAL 40 MG VIAL IV SCH ×2 (01:08→12:06)
[2020-07-27] MEDS: Heparin 5000 UNITS/ML 1 mL VIAL SUBCUT SCH ×3 (01:11→18:02)
[2020-07-27] MEDS: Mometasone/Formoter 100/5 MDI INH SCH ×2 (07:50→19:08)
[2020-07-27] MEDS: Mupirocin 2% OINT TUBE TOPICAL SCH ×2 (08:45→21:38)
[2020-07-27] MEDS: TPN CENTRAL STANDARD BASE B CENT\\PICC SCH (16:50)
[2020-07-28] MEDS: Pantoprazole VIAL 40 MG VIAL IV SCH ×2 (01:35→12:13)
[2020-07-28] MEDS: Heparin 5000 UNITS/ML 1 mL VIAL SUBCUT SCH ×3 (01:37→17:55)
[2020-07-28] MEDS: Ondansetron 4 mg VIAL 2 MG/ML 2 ml VIAL IV PRN (03:57)
[2020-07-28 04:54] LABS: Hematocrit 26 % (35-47); Hemoglobin 8.7 g/dL (12.0-16.0); Mean Corpuscular HGB Conc 34 g/dL (31-36); Mean Corpuscular Hemoglobin 26 pg (27-31); Mean Corpuscular Volume 77 fL (80-97); Mean Platelet Volume 7.5 fL (7.4-10.4); Platelet Count 526 10^3/uL (150-450); Red Blood Count 3.36 10^6 /uL (3.70-4.87); Red Cell Distribution Width 25 % (10-15)
[2020-07-28 05:03] LABS: BUN/Creatinine Ratio 50.8 (8-20); C Reactive Protein 35.7 mg/L (<8.01); Calcium 8.3 mg/dL (8.6-10.3); EGFR African American 118.4 (>60); EGFR Non-African American 97.8 (>60)
[2020-07-28] MEDS: Albuterol HFA INHALER 8 gm MDI INH PRN ×2 (07:55→19:30)
[2020-07-28] MEDS: Mometasone/Formoter 100/5 MDI INH SCH ×2 (08:07→19:30)
[2020-07-28] MEDS: Mupirocin 2% OINT TUBE TOPICAL SCH ×2 (09:40→23:53)
[2020-07-28] MEDS: TPN CENTRAL STANDARD BASE B CENT\\PICC SCH (16:27)
[2020-07-29] MEDS: Pantoprazole VIAL 40 MG VIAL IV SCH ×2 (00:17→14:39)
[2020-07-29] MEDS: Heparin 5000 UNITS/ML 1 mL VIAL SUBCUT SCH ×3 (03:15→17:22)
[2020-07-29 05:16] LABS: Troponin I 0.09 ng/mL (<0.03)
[2020-07-29] MEDS: Mometasone/Formoter 100/5 MDI INH SCH ×2 (07:56→19:34)
[2020-07-29 09:12] LABS: Troponin I 0.09 ng/mL (<0.03)
[2020-07-29] MEDS: Metoclopramide 5 MG/ML VIAL (10 mg) IV SCH (10:42)
[2020-07-29] MEDS: Mupirocin 2% OINT TUBE TOPICAL SCH (10:44)
[2020-07-29] MEDS: Scopolamine PATCH Remove NOTE PATCH OFF SCH (11:09)
[2020-07-29] MEDS: TPN CENTRAL STANDARD BASE B CENT\\PICC SCH (17:21)
[2020-07-30] MEDS: Mupirocin 2% OINT TUBE TOPICAL SCH ×3 (00:40→23:22)
[2020-07-30] MEDS: Pantoprazole VIAL 40 MG VIAL IV SCH ×2 (00:46→12:39)
[2020-07-30] MEDS: Metoclopramide 5 MG/ML VIAL (10 mg) IV SCH ×2 (01:31→09:11)
[2020-07-30] MEDS: Heparin 5000 UNITS/ML 1 mL VIAL SUBCUT SCH ×3 (01:49→17:53)
[2020-07-30 08:29] LABS: Albumin 2.4 g/dL (3.2-5.2); Albumin/Globulin Ratio 0.4 (1-3); BUN/Creatinine Ratio 46.6 (8-20); Calcium 8.3 mg/dL (8.6-10.3); EGFR African American 125.5 (>60); EGFR Non-African American 103.7 (>60); Globulin 5.4 g/dL (2-4); Magnesium 1.7 mg/dL (1.9-2.7); Phosphorus 3.2 mg/dL (2.5-5.0); Potassium 4.2 mmol/L (3.5-5.0); Total Bilirubin 0.3 mg/dL (0.2-1.0); Total Protein 7.8 g/dL (6.4-8.9)
[2020-07-30] MEDS ORDERED: Metoclopramide 5 MG/ML VIAL (10 mg) IV PRN (09:10)
[2020-07-30] MEDS: Mometasone/Formoter 100/5 MDI INH SCH ×2 (09:42→20:41)
[2020-07-30] MEDS ORDERED: Magnesium Sulfate IV 3 GM in NS 0.9% 100 ml BAG 100 ML IVPB ONE (12:11)
[2020-07-31] MEDS: Pantoprazole VIAL 40 MG VIAL IV SCH ×2 (00:15→11:45)
[2020-07-31] MEDS: Heparin 5000 UNITS/ML 1 mL VIAL SUBCUT SCH ×3 (02:50→21:26)
[2020-07-31] MEDS: Mometasone/Formoter 100/5 MDI INH SCH ×2 (07:27→20:20)
[2020-07-31] MEDS: Mupirocin 2% OINT TUBE TOPICAL SCH ×2 (09:45→21:29)
[2020-07-31] MEDS: Ondansetron 4 mg VIAL 2 MG/ML 2 ml VIAL IV PRN (16:49)
[2020-08-01] MEDS: Pantoprazole VIAL 40 MG VIAL IV SCH (00:53)
[2020-08-01] MEDS: Heparin 5000 UNITS/ML 1 mL VIAL SUBCUT SCH ×2 (08:32→22:09)
[2020-08-01] MEDS: Mupirocin 2% OINT TUBE TOPICAL SCH ×2 (08:32→22:09)
[2020-08-01] MEDS: Mometasone/Formoter 100/5 MDI INH SCH ×2 (10:04→20:20)
[2020-08-02] MEDS: Mometasone/Formoter 100/5 MDI INH SCH ×2 (07:14→19:38)
[2020-08-02] MEDS: Heparin 5000 UNITS/ML 1 mL VIAL SUBCUT SCH ×2 (09:15→21:54)
[2020-08-02] MEDS: Mupirocin 2% OINT TUBE TOPICAL SCH (09:16)
[2020-08-02] MEDS: Ondansetron ODT 4 mg TAB 4 MG TAB SL PRN (14:08)
[2020-08-03] MEDS: Ondansetron ODT 4 mg TAB 4 MG TAB SL PRN ×2 (06:09→21:15)
[2020-08-03] MEDS: Mometasone/Formoter 100/5 MDI INH SCH ×2 (08:46→19:58)
[2020-08-03] MEDS: Heparin 5000 UNITS/ML 1 mL VIAL SUBCUT SCH ×2 (10:27→21:14)
[2020-08-04] MEDS: Ondansetron ODT 4 mg TAB 4 MG TAB SL PRN ×2 (05:46→20:53)
[2020-08-04] MEDS: Mometasone/Formoter 100/5 MDI INH SCH ×2 (07:19→20:23)
[2020-08-04] MEDS: Heparin 5000 UNITS/ML 1 mL VIAL SUBCUT SCH ×2 (10:28→20:53)
[2020-08-05 04:48] LABS: Hematocrit 30 % (35-47); Hemoglobin 9.6 g/dL (12.0-16.0); Mean Corpuscular HGB Conc 32 g/dL (31-36); Mean Corpuscular Hemoglobin 25 pg (27-31); Mean Corpuscular Volume 80 fL (80-97); Mean Platelet Volume 6.9 fL (7.4-10.4); Platelet Count 346 10^3/uL (150-450); Red Blood Count 3.77 10^6 /uL (3.70-4.87); Red Cell Distribution Width 25 % (10-15); White Blood Count 6.8 10^3/uL (3.5-10.8)
[2020-08-05 05:16] LABS: Calcium 8.1 mg/dL (8.6-10.3); EGFR African American 116.2 (>60); Potassium 3.6 mmol/L (3.5-5.0)
[2020-08-05] MEDS: Mometasone/Formoter 100/5 MDI INH SCH (08:32)
[2020-08-05] MEDS ORDERED: NS 0.9% 1000 ml BAG 1,000 ML IV SCH (08:45)
[2020-08-05] MEDS: Heparin 5000 UNITS/ML 1 mL VIAL SUBCUT SCH (08:59)
[2020-08-05 11:38] VITALS: BP 130/56
== END 2020-08-05 14:27 | DRG 326 ==
LOC: ED 09:10 → SSU 11:09 → MEDTELE 07-22 11:22 → SSU 07-24 15:01
PROVIDERS: ADMIT Internal Medicine; ATTEND Surgery